=== PATIENT | female | born 1955 | race Caucasian/White ===

== ENCOUNTER 2020-06-26 09:39 | Outpatient (REF) | payer BC, SELFPAY | END 2020-06-26 09:40 | disposition home or self-care (01) | LOC: HO.WFDLDS 09:39 | PROVIDERS: PCP Pediatrics; Visit Provider Internal Medicine | DX: Z20.828 Contact with and (suspected) exposure to other viral communicable diseases (principal) | CPT/HCPCS: 87635 ==

== ENCOUNTER → 2022-06-17 07:52 | Outpatient (BNVA) | payer MEDICARE, SELFPAY | PROVIDERS: PCP Internal Medicine; Visit Provider Nurse Practitioner Family | DX: G47.00 Insomnia, unspecified (principal); J93.83 Other pneumothorax | CPT/HCPCS: 99212 ==

== ENCOUNTER → 2022-08-22 09:04 | Outpatient (BNVA) | payer MEDICARE, SELFPAY | PROVIDERS: PCP Internal Medicine; Visit Provider Nurse Practitioner Family | DX: G47.00 Insomnia, unspecified (principal) | CPT/HCPCS: 99212 ==

== ENCOUNTER → 2022-10-23 09:22 | Outpatient (BNVA) | payer MEDICARE, SELFPAY | PROVIDERS: PCP Internal Medicine; Visit Provider Nurse Practitioner Family | DX: G47.00 Insomnia, unspecified (principal) | CPT/HCPCS: 99212 ==

== ENCOUNTER → 2022-12-20 10:36 | Outpatient (BNVA) | payer MEDICARE, SELFPAY | PROVIDERS: PCP Internal Medicine; Visit Provider Nurse Practitioner Family | DX: G47.00 Insomnia, unspecified (principal); G47.50 Parasomnia, unspecified | CPT/HCPCS: 99212 ==

== ENCOUNTER → 2023-01-20 10:47 | Outpatient (BNVA) | payer MEDICARE, SELFPAY | PROVIDERS: PCP Internal Medicine; Visit Provider Nurse Practitioner Family | DX: G47.00 Insomnia, unspecified (principal); G47.50 Parasomnia, unspecified | CPT/HCPCS: 99212 ==

== ENCOUNTER 2023-05-16 09:09 | Outpatient (AMB) | payer MEDICARE, SELFPAY ==
--- NOTE | 2023-05-16 09:06 | MHC.OFFVIS ---
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 Allergies amitriptyline Allergy (Severe, Verified 05/16/23 09:07) Face swelling amlodipine Allergy (Severe, Verified 05/16/23 09:07) Anaphylaxis cephalexin Allergy (Severe, Verified 05/16/23 09:07) Swelling estradiol [From Estrace] Allergy (Severe, Verified 05/16/23 09:07) Swelling hydromorphone [From Dilaudid] Allergy (Severe, Verified 05/16/23 09:07) Swelling nitrofurantoin [From Macrobid] Allergy (Severe, Verified 05/16/23 09:07) Swelling spironolactone Allergy (Severe, Verified 05/16/23 09:07) Anaphylaxis sulfamethoxazole [From Bactrim] Allergy (Severe, Verified 05/16/23 09:07) Anaphylaxis trimethoprim [From Bactrim] Allergy (Severe, Verified 05/16/23 09:07) Anaphylaxis cromolyn [From Gastrocrom] Adverse Reaction (Mild, Verified 05/16/23 09:07) Swelling vaginal cream Allergy (Severe, Uncoded 05/16/23 09:07) Swelling HPI HPI Comments History of Present Illness Details 67 y/o female patient presents for follow up of insomnia and prasomnia. Pt reports that she practiced the sleep hygiene with the book Say Good Night to In[place]mia . Pt removed her TV from her bedroom and it helps her sleep better, too. She can decreased clonazepam to 1 mg and could sleep for 8 hours. Pt uses escitalopram 5 mg for anxiety and it helps her mood stable. She tries daily morning exercise. Pt also reports that she had a TIA, had right side weakness but it has resolved. EKG was normal and atorvastin 10 mg and aspirin 81 mg started. [facility] Medical History Spontaneous pneumothorax Surgical History H/O abdominoplasty H/O bilateral breast reduction surgery History of facelift Status post creation of urethral sling by suprapubic approach Family History Mother Cancer Brother Diabetes Social History (Updated 05/16/23 @ 09:12 by Bambi Adame CMA) Household Members: Spouse Housing: House Alcohol intake: current Patient Tobacco Use Status: Former Tobacco user Tobacco use type: Cigarette Review of Systems Const All systems reviewed & are unremarkable except as noted in HPI and below Physical Exam Vital Signs: Last Vital Signs Pulse 79 05/16/23 09:12 BP 140/80 H 05/16/23 09:12 Pulse Ox 98 05/16/23 09:12 Oxygen Delivery Method Room Air 05/16/23 09:12 Const General: cooperative and comfortable Nutritional Appearance: overweight Orientation/consciousness: patient oriented x3 Limitations: no limitations Resp Effort & Inspection: normal respiratory effort and able to speak in complete sentences Neuro General: patient oriented x3, gait normal, moves all extremities and CN's II-XI intact bilaterally Cognition (Neuro): normal cognition Psych Appearance: grossly normal Mental Status: mental status grossly normal Speech and movement: Normal speech and movement present Affect: normal affect Attitude: cooperative Assessment & Plan Assessment & Plan (1) Insomnia: Code(s): G47.00 - Insomnia, unspecified (2) Parasomnia: Code(s): G47.50 - Parasomnia, unspecified Plan Continue to take clonazepam 1 mg qHS and escitalopram 5 mg daily to manage anxiety. Continue to practice sleep hygiene. Increase daily exercise, walking 30 min a day. Monitor BP, and wt reduction advised. Continue to take atorvastin and aspirin. Will request the hospitalization note. Medications: New clonazepam administer 30 minutes before bedtime 1 mg PO BEDTIME 30 tabs 5RF 30 days Discontinued clonazepam administer 30 minutes before bedtime Discontinued Reason: Doctor's Order 2 mg PO BEDTIME 30 days 30 tabs 1RF Coding Level of Care Code Est Pt Level 4 (18485) Diagnoses Insomnia G47.00 Parasomnia G47.50
[2023-05-16 09:12] VITALS: BP 140/80; PULSE 79; O2SAT 98
== END 2023-05-16 09:36 | disposition home or self-care (01) ==
PROVIDERS: PCP Internal Medicine; Visit Provider Nurse Practitioner Family
DX: G47.00 Insomnia, unspecified (principal); G47.50 Parasomnia, unspecified
CPT/HCPCS: 99214

== ENCOUNTER → 2023-05-16 09:09 | Outpatient (BNVA) | payer MEDICARE, SELFPAY | PROVIDERS: PCP Internal Medicine; Visit Provider Nurse Practitioner Family | DX: G47.50 Parasomnia, unspecified (principal); Z79.899 Other long term (current) drug therapy | CPT/HCPCS: 99212 ==

== ENCOUNTER 2023-11-12 09:15 | Outpatient (AMB) | payer MEDICARE, SELFPAY ==
--- NOTE | 2023-11-12 09:30 | A.OFFVIS_ITS ---
Intake Vital Signs 11/12/23 09:37 Height 5 ft 3.5 in Weight 161 lb 8 oz BMI 28.2 BP 142/80 H Blood Pressure Location Lt brachial Position Sitting Pulse 88 Pulse Source Pulse Oximeter Pulse Oximetry (%) 98 Oxygen Delivery Method Room Air Intake Visit Reasons: 6m follow up - Conf W/address Intake Note: Patient presents for 6 months f/u. Not sleeping at night. Wants a list of sleeping medication that provider gave to her. Allergies amitriptyline Allergy (Severe, Verified 11/12/23 09:35) Face swelling amlodipine Allergy (Severe, Verified 11/12/23 09:35) Anaphylaxis cephalexin Allergy (Severe, Verified 11/12/23 09:35) Swelling estradiol [From Estrace] Allergy (Severe, Verified 11/12/23 09:35) Swelling hydromorphone [From Dilaudid] Allergy (Severe, Verified 11/12/23 09:35) Swelling nitrofurantoin [From Macrobid] Allergy (Severe, Verified 11/12/23 09:35) Swelling spironolactone Allergy (Severe, Verified 11/12/23 09:35) Anaphylaxis sulfamethoxazole [From Bactrim] Allergy (Severe, Verified 11/12/23 09:35) Anaphylaxis trimethoprim [From Bactrim] Allergy (Severe, Verified 11/12/23 09:35) Anaphylaxis cromolyn [From Gastrocrom] Adverse Reaction (Mild, Verified 11/12/23 09:35) Swelling vaginal cream Allergy (Severe, Uncoded 05/16/23 09:07) Swelling HPI HPI Comments History of Present Illness Details 68 y/o female patient presents for follo w up of insomnia and prasomnia. Pt reports that she practiced the sleep hygiene with the book Say Good Night to Insomnia . Pt removed her TV from her bedroom and it helps her sleep better, too. She can decreased clonazepam to 1 mg but can't sleep more than 3 hrs. Pt uses escitalopram 5 mg for anxiety and it helps her mood stable. She tries daily morning exercise. Pt reported sleep walking and eating with Lunesta. However, she told me today, she lied, never tried Lunesta due to the cost. Pt has long hx of ambien using, and she slept well with it. Denies side effect with it. But her previous doctor wanted to wean off. She also tried Trazodone, but it caused legs pain. [facility] Medical History Spontaneous pneumothorax Surgical History Status post creation of urethral sling by suprapubic approach H/O bilateral breast reduction surgery H/O abdominoplasty History of facelift Family History Mother Cancer Brother Diabetes Social History Household Members: Spouse Housing: House Alcohol intake: current Patient Tobacco Use Status: Former Tobacco user Tobacco use type: Cigarette Review of Systems Const All systems reviewed & are unremarkable except as noted in HPI and below Physical Exam Vital Signs: Last Vital Signs Pulse 88 11/12/23 09:37 BP 142/80 H 11/12/23 09:37 Pulse Ox 98 11/12/23 09:37 Oxygen Delivery Method Room Air 11/12/23 09:37 BMI result Body Mass Index 28.2 Const General: cooperative and comfortable Nutritional Appearance: overweight Orientation/consciousness: patient oriented x3 Limitations: no limitations Resp Effort & Inspection: normal respiratory effort and able to speak in complete sentences Neuro General: patient oriented x3, gait normal, moves all extremities and CN's II-XI intact bilaterally Cognition (Neuro): normal cognition Psych Appearance: grossly normal Mental Status: mental status grossly normal Speech and movement: Normal speech and movement present Affect: normal affect Attitude: cooperative Assessment & Plan Assessment & Plan (1) Insomnia: Code(s): G47.00 - Insomnia, unspecified (2) Parasomnia: Code(s): G47.50 - Parasomnia, unspecified (3) Anxiety: Code(s): F41.9 - Anxiety disorder, unspecified Plan Advised patient to decrease clonazepam to 0.5 mg qHS. Start ambien 5 mg qHS. Continue escitalopram 5 mg daily to manage anxiety. Continue to practice sleep hygiene. Increase daily exercise, walking 30 min a day. Monitor BP, and wt reduction advised. Medications: New clonazepam 0.5 mg PO BEDTIME 30 tabs 0RF 30 days zolpidem (Ambien) 5 mg PO .every other day 15 tabs 2RF 30 days Discontinued clonazepam administer 30 minutes before bedtime Discontinued Reason: Doctor's Order 1 mg PO BEDTIME 30 days 30 tabs 5RF Coding Level of Care Code Est Pt Level 4 (36886) Diagnoses Insomnia G47.00 Parasomnia G47.50 Anxiety F41.9
[2023-11-12 09:37] VITALS: BP 142/80; PULSE 88; O2SAT 98; BMI 28.2
== END 2023-11-12 10:05 | disposition home or self-care (01) ==
PROVIDERS: PCP Internal Medicine; Visit Provider Nurse Practitioner Family
DX: G47.00 Insomnia, unspecified (principal); G47.50 Parasomnia, unspecified; F41.9 Anxiety disorder, unspecified
CPT/HCPCS: 99214

== ENCOUNTER → 2023-11-12 09:15 | Outpatient (BNVA) | payer MEDICARE, SELFPAY | PROVIDERS: PCP Internal Medicine; Visit Provider Nurse Practitioner Family | DX: G47.00 Insomnia, unspecified (principal); G47.50 Parasomnia, unspecified; F41.9 Anxiety disorder, unspecified | CPT/HCPCS: 99212 ==